=== PATIENT | male | born 1975 | race Caucasian/White ===

== ENCOUNTER 2016-10-07 17:30 | Emergency (ER) | payer MEDICAID, OTHER ==
[2016-10-07] MEDS ORDERED: TORAdol 30 mg Injection IM ONE (17:42)
[2016-10-07] MEDS ORDERED: Norflex 60 MG/2 ML IM ONE (17:43)
[2016-10-07] MEDS ORDERED: Norflex 60 MG/2 ML ONE (17:45)
[2016-10-07] MEDS ORDERED: TORAdol 30 mg Injection ONE (17:45)
--- NOTE | 2016-10-07 17:55 | ERPHSYRPT ---
- History of Present Illness Time Seen by Provider: 10/07/16 17:52 Source: patient Exam Limitations: no limitations Patient Subjective Stated Complaint: states was twisting today to excelsior picker grandchild and now back hurts. states left arm and leg numb. Triage Nursing Assessment: ambulated to room per self. skin w/d, color normal, resp easy. patient guarding back. Physician History: states was twisting today to excelsior picker grandchild and now back hurts. states left arm and leg numb. denies any loss of consciousness Timing/Duration: today Method of Injury: twisted Quality: burning, cramping Back Pain Location: T-spine Severity of Pain-Max: moderate Severity of Pain-Current: moderate Modifying Factors: Improves With: nothing Allergies/Adverse Reactions: Penicillins Allergy (Verified 10/07/16 17:44) Hx Tetanus, Diphtheria Vaccination/Date Given: Yes Hx Influenza Vaccination/Date Given: No Hx Pneumococcal Vaccination/Date Given: No - Review of Systems Constitutional: No Symptoms Eyes: No Symptoms Ears, Nose, & Throat: No Symptoms Respiratory: No Symptoms Cardiac: No Symptoms Abdominal/Gastrointestinal: Constipation Genitourinary Symptoms: No Symptoms Musculoskeletal: Back Pain (thoracic left side), Myalgias, Other (large lipomatous cyst on mid back) - Past Medical History Pertinent Past Medical History: Yes Cardiac History: Other Other Medical History: VARICOSE VEINS - Past Surgical History Past Surgical History: No - Social History Smoking Status: Former smoker Exposure to second hand smoke: No Drug Use: none Patient Lives Alone: No - Nursing Vital Signs Temperature: 98.2 F Temperature Source: Oral Pulse Rate: 83 Respiratory Rate: 20 Pain Intensity: 10 - Physical Exam General Appearance: no apparent distress, alert Eye Exam: PERRL/EOMI, eyes nml inspection Neck Exam: normal inspection, non-tender, supple, full range of motion, No meningismus, No midline tenderness Respiratory Exam: normal breath sounds, lungs clear, No respiratory distress Cardiovascular Exam: regular rate/rhythm, normal heart sounds Gastrointestinal Exam: soft, No tenderness, No mass Back Exam: muscle spasm (left side thoracic area) Extremity Exam: normal inspection, normal range of motion, No calf tenderness, No pedal edema Neurologic Exam: alert, oriented x 3, cooperative, j2ee application developer II-XII nml as tested, normal mood/affect, nml station & gait, sensation nml, No motor deficits Skin Exam: normal color, warm, dry, No rash SpO2: 99 Oxygen Delivery: Room Air Ordered Tests: Medication Summary Discontinued Medications Generic Name Dose Route Start Last Admin Trade Name Shane PRN Reason Stop Dose Admin Ketorolac Tromethamine 60 mg 10/07/16 17:42 10/07/16 17:49 Toradol 30 Mg Injection IM 10/07/16 17:43 60 mg STAT ONE Administration Ketorolac Tromethamine Confirm 10/07/16 17:45 Toradol 30 Mg Injection Administered 10/07/16 17:46 Dose 60 mg .ROUTE .STK-MED ONE Orphenadrine Citrate 60 mg 10/07/16 17:43 10/07/16 17:50 Norflex 60 Mg/2 Ml IM 10/07/16 17:44 60 mg STAT ONE Administration Orphenadrine Citrate Confirm 10/07/16 17:45 Norflex 60 Mg/2 Ml Administered 10/07/16 17:46 Dose 60 mg .ROUTE .STK-MED ONE - Progress Progress: improved Counseled pt/family regarding: diagnosis, need for follow-up - Departure Time of Disposition: 18:00 Departure Disposition: Home Clinical Impression: Spasm of thoracic back muscle, Lipoma of back Condition: Stable Critical Care Time: No Referrals: NORMA JOHNSON [Primary Care Provider] - Instructions: Muscle Strain Additional Instructions: BACK INJURY 1. May apply moist heat frequently for relief of pain. Take care not to burn the skin. Do not use heat for more than 30 minutes at a time. 2. Try to sleep on a firm bed, flat on your back. 3. If no improvement is noticed in 2-3 days, follow up with your family physician. 4. If you notice any numbness, tingling, weakness, or problems with your bowel or bladder, you should call your family physician or return to the emergency department. Please follow the instructions given to you. Please take your medication as prescribed if given. If symptoms recur or get worse, come back to the emergency room if you cannot reach your primary care physician, or call your primary care physician for an appointment. Again if your symptoms get worse, come back to the emergency room. Thanks for visiting emergency room, and let us take care of you. Prescriptions: Cyclobenzaprine HCl 10 mg PO TID #30 tablet Naproxen 375 mg [Naprosyn 375 mg] 375 mg PO Q8H #30 tablet
[2016-10-07 18:14] VITALS: BP 128/77; PULSE 80; O2SAT 98
== END 2016-10-07 18:13 | disposition home or self-care (01) ==
LOC: ED 17:30
DX: M62.830 Muscle spasm of back (principal); D17.1 Benign lipomatous neoplasm of skin and subcutaneous tissue of trunk; X50.0XXA Overexertion from strenuous movement or load, initial encounter
CPT/HCPCS: 96372; 99282; 99283; 99284; J1885; J2360

== ENCOUNTER 2017-02-25 11:44 | Day surgery (SDC) | payer OTHER, SELFPAY ==
--- NOTE | 2016-12-31 07:41 | HP ---
DATE OF SURGERY: 12/31/2016 HISTORY OF PRESENT ILLNESS: The patient is a 41 year-old for the past three years had an enlarging subcutaneous mass on his back increasing in size now and desires excision. PAST MEDICAL HISTORY: He denies any chronic illnesses. PAST SURGICAL HISTORY: None. MEDICATIONS: None. ALLERGIES: PENICILLIN. FAMILY HISTORY: Negative. SOCIAL HISTORY: He chews. He denies smoking. He denies alcohol abuse. REVIEW OF SYSTEMS: Twelve systems reviewed per admission assessment. No chest pain or palpitations other systems negative or noncontributory as above and per preadmission questionnaire. PHYSICAL EXAMINATION: GENERAL: No acute distress. HEENT: Sclerae nonicteric. NECK: No JVD. CHEST: Equal excursion, nonlabored breathing. CVS: Regular rate and rhythm. ABDOMEN: Soft. No peritoneal signs. EXTREMITIES: No edema. No cyanosis. NEURO: Alert, oriented, moving extremities symmetrically. No gross motor deficits noted. BACK: Large subcutaneous mass question lipoma. IMPRESSION: Enlarging back subcutaneous mass question lipoma versus other etiology. I feel he will benefit from excisional biopsy. Risks and benefits explained in detail including but not limited to bleeding or infection, small risk of wound dehiscence possibly requiring packing, risk of wound infection possibly requiring packing, overall risk of aches and pains, risk of hematoma or seroma formation but not limited to, general risk of anesthesia, deep venous thrombosis, pulmonary embolism, pneumonia, perioperative risk of aches, pains, bloating, or numbness possibly terminal computer operator or chronic in nature. He also understands what we excise likely will not recur but he could get similar nodule adjacent to or elsewhere on his body. Will proceed with excisional biopsy of enlarging back mass or lipoma as an outpatient.
--- NOTE | 2017-02-25 07:38 | HP ---
DATE OF SURGERY: 02/25/2017 HISTORY OF PRESENT ILLNESS: The patient is a 41 year-old who for the past three years having enlarging back mass question lipoma versus other etiology is enlarging in size and desires excision of subcutaneous mass. PAST MEDICAL HISTORY: He denies any chronic illnesses. MEDICATIONS: None. ALLERGIES: PENICILLIN. PAST SURGICAL HISTORY: None. FAMILY HISTORY: Negative. SOCIAL HISTORY: Chews tobacco, denies smoking. No alcohol abuse. REVIEW OF SYSTEMS: Twelve systems reviewed per admission assessment. No chest pain or palpitations other systems negative or noncontributory as above and per preadmission questionnaire. PHYSICAL EXAMINATION: GENERAL: No acute distress. HEENT: Sclerae nonicteric. NECK: No JVD. CHEST: Equal excursion, nonlabored breathing. CVS: Regular rate and rhythm. ABDOMEN: Soft, nontender. BACK: Subcutaneous mass on his back question lipoma or other etiology. EXTREMITIES: No significant edema or cyanosis. NEURO: Alert, moving extremities symmetrically. No gross motor deficits noted. IMPRESSION: Enlarging back subcutaneous mass increasing symptoms. I feel he would benefit from excisional biopsy. Risks and benefits explained in detail including but not limited to bleeding or infection, small risk of wound complications or dehiscence possibly requiring packing, general risk of anesthesia, general risk of anesthesia, deep venous thrombosis, pulmonary embolism, pneumonia, general risk of aches and pains. He understands what we excise likely will not recur once he heals the wound but he could develop adjacent or nearby nodule or lipoma adjacent to or elsewhere on his body. He understands and agrees to the planned procedure and will proceed with excisional biopsy of enlarging subcutaneous back lesion or lipoma as an outpatient.
[~2017-02-25 11:44] MED LIST: Lactated Ringers 1,000 ML IV ONE; Sensorcaine 0.25% 10 ML ONE; Triple Antibiotic Ointment ONE
== END 2017-02-25 12:00 | disposition home or self-care (01) ==
LOC: SDC 11:44
PROVIDERS: ATTEND Surgery
DX: R22.2 Localized swelling, mass and lump, trunk (principal); Z53.8 Procedure and treatment not carried out for other reasons
CPT/HCPCS: A9270-GY